=== PATIENT | male | born 1965 | race Caucasian/White ===

== ENCOUNTER 2019-05-30 12:51 | Observation (INO) | payer SELFPAY ==
[2019-05-30] MEDS ORDERED: Nitroglycerin 0.4 MG TAB (25 Tab Bottle) PO PRN (14:29)
[2019-05-30] MEDS ORDERED: Acetaminophen 325 MG TAB PO PRN (14:31)
[2019-05-30] MEDS ORDERED: Senokot S 8.6-50 MG TAB PO PRN (14:31)
[2019-05-30] MEDS ORDERED: Calcium Carbonate 500 MG ChewTAB PO PRN (14:31)
--- NOTE | 2019-05-30 15:14 | HP ---
PRIMARY CARE PHYSICIAN: None. CHIEF COMPLAINT: Chest discomfort. HISTORY OF PRESENT ILLNESS: The patient is a 54-year-old male with obesity and hypertension, presented to the emergency room with above complaints. The patient had an episode of chest discomfort last night that was substernal, 10/10, without any aggravating or relieving factor. He was short of breath without any diaphoresis, nausea, vomiting, lightheadedness, dizziness, or palpitations. He has been having exertional shortness of breath recently that is progressively getting worse. He has a history of hypertension, however, does not take any medications. He denies any fever, chills, heartburn, belching, or burping. He had a stress test more than 4 to 5 years ago for similar complaint. PAST MEDICAL HISTORY: 1. Hypertension. 2. Psoriasis. PAST SURGICAL HISTORY: Reviewed with the patient and none. ALLERGIES: THE PATIENT IS ALLERGIC TO CYMBALTA. CURRENT HOME MEDICATIONS: Enbrel once a week for psoriasis. SOCIAL HISTORY: The patient has history of methamphetamine abuse. Last use was two weeks ago. He chews tobacco. He currently is at [facility] for rehab. He denies any alcohol use. FAMILY HISTORY: Mother with lymphoma. REVIEW OF SYSTEMS: All other review of systems was reviewed and were found negative. PHYSICAL EXAMINATION: VITAL SIGNS: Temperature 98.3, respiration of 20, pulse rate of 79, blood pressure of 138/116 on ER arrival. His blood pressure after nitroglycerin was 111/78. GENERAL: A 54-year-old male in no apparent distress. Chest discomfort improved. HEENT: Head, atraumatic and normocephalic. Sclerae anicteric. Moist mucous membranes. No oral lesion. NECK: Supple. No JVD appreciated. No carotid bruit. LUNGS: Clear to auscultation bilaterally. No wheezing, rales, rhonchi. HEART: S1 and S2 present. Regular rate and rhythm. No rubs or gallops appreciated. No significant murmurs. ABDOMEN: Soft, nontender. Bowel sounds present. EXTREMITIES: No edema or calf tenderness. NEUROLOGY: Grossly nonfocal. Moves all 4 extremities. PSYCHIATRY: Alert, awake, and oriented x3. SKIN: Warm and dry. LYMPH NODES: No palpable lymph nodes in the neck. LABORATORY FINDINGS: Troponin x1 was negative. WBC 8.9, hemoglobin 15.9, hematocrit 46.4, platelet 184. D-dimer was negative. AST of 63, ALT of 165, alkaline phosphatase 94. Urine drug screen was negative. Urinalysis was negative. Chest x-ray by my review was negative for infiltrate or edema. EKG by my review showed sinus rhythm with nonspecific ST-T wave changes. Right bundle-branch block. MEDICATION: Given at [facility] emergency room; 1. Lovenox 1 mg/kg. 2. Tylenol. 3. Sublingual nitroglycerin x3. 4. Aspirin 324 mg. IMPRESSION: 1. Chest discomfort, resolved after three sublingual nitroglycerin. 2. Obesity BMI 30.7 3. Hypertension with hypertensive urgency on admission. 4. Abnormal LFTs of unclear etiology. 5. Tobacco dependence. 6. History of methamphetamine abuse, currently in rehab. 7. Suspected obstructive sleep apnea. PLAN: The patient will be monitored in the telemetry unit as observation. Serial troponins will be obtained. We will keep him n.p.o. for possible stress test if his troponins are negative. He already received 1 dose of Lovenox. He denies any chest discomfort at this time. We will check fasting lipid profile in a.m. We will consider cardiology consultation if his troponins are abnormal. Plan was discussed with the patient in detail. He stated understanding. Job ID: [id number] MTDD
[2019-05-30 16:26] VITALS: BMI 30.7
[2019-05-30] MEDS ORDERED: Atorvastatin Calcium 20 MG TAB PO SCH (21:00)
[2019-05-30 21:04] LABS: Troponin I Less than 0.010 ng/mL (< 0.028)
[2019-05-31 04:41] LABS: Hemoglobin A1c 6.2 % (4.0-6.0)
[2019-05-31 04:59] LABS: Cardiac Risk 4.8 (Less than 4.5)
[2019-05-31] MEDS ORDERED: Aspirin 325 mg Enteric Coated Tablet PO SCH (09:00)
[2019-05-31 15:49] VITALS: BP 130/76; TEMP 98
--- NOTE | 2019-05-31 15:52 | NM ---
Nuclear medicine Cardiac myocardial perfusion SPECT Ejection fraction study Wall motion cine: DATE:05/31/2019 7:00 AM INDICATION: Chest pain TECHNIQUE: Number of days:2 Rest Study: Technetium 99m-sestamibi (Cardiolite) dose:10.50 mCi Stress study: Technetium 99m-sestamibi (Cardiolite) dose:29.10 mCi FINDINGS: Cardiac (myocardial perfusion) SPECT There are no reversible myocardial perfusion defects. Ejection fraction study Left ventricular EF = 56% Wall motion cine There is some dyskinesia involving the inferior wall and apex on the cine images. There was normal wa ll thickening. IMPRESSION: 1. No specific scintigraphic evidence to suggest presence of reversible myocardial ischemia. 2. Some abnormal dyskinesia involving the inferior wall and apex of the lateral ventricle. Recommend consideration for echocardiography. 3. Estimated LVEF of 56%
--- NOTE | 2019-05-31 19:18 | DIS ---
DATE OF ADMISSION: 05/30/2019 DATE OF DISCHARGE: 05/31/2019 DISCHARGE DISPOSITION: Home. FOLLOWUP: Follow up with [facility]. ALLERGIES: THE PATIENT IS ALLERGIC TO CYMBALTA. DISCHARGE MEDICATIONS: Enbrel 50 mg every 7 days. INPATIENT CONSULTANTS: None. The patient was seen and examined on the day of discharge. Denies any new complaints. No chest pain, shortness of breath, or palpitations. SIGNIFICANT LABS: D-dimer was negative. Hemoglobin A1c 6.2. Fasting lipid showed triglyceride 174, cholesterol 158, LDL 90, HDL of 33. BRIEF HOSPITAL COURSE: The patient is a 54-year-old male with obesity and hypertension, presented to the emergency room with chest discomfort. Please refer to the history and physical for further details. The patient was admitted to the hospital with a diagnosis of chest discomfort, rule out acute coronary syndrome. His serial troponins were negative. He underwent exercise Cardiolite stress test that was negative for reversible ischemia. It showed some abnormal dyskinesia involving the inferior wall and the apex of the lateral ventricle. His ejection fraction was 56%. For this reason, he underwent an echocardiogram that showed normal left ventricular ejection fraction of 55% to 60% with mild mitral regurgitation, mild tricuspid regurgitation. He appears stable for discharge. He is chest pain free. FINAL DIAGNOSES: 1. Chest discomfort. Acute coronary syndrome ruled out. 2. No reversible ischemia on the stress test. 3. Obesity with a BMI 30.7. 4. History of methamphetamine abuse, currently in rehab. 5. Suspected obstructive sleep apnea. Sleep study as an outpatient was recommended. 6. Tobacco dependence. The patient was counseled. 7. Abnormal LFTs of unclear etiology. AST was 63, ALT of 165 with normal total bilirubin and alkaline phosphatase. Repeat LFTs as an outpatient were recommended. Primary care physician advised to follow. 8. Chronic kidney disease, stage 2. 9. Dyslipidemia. 10. Impaired glucose tolerance. PLAN: Plan was discussed with the patient in detail. He stated understanding. The patient was educated on dietary modification by dietitian as well. Job ID: [id number]
--- NOTE | 2019-06-03 16:21 | EKG ---
Test Reason : Blood Pressure : / mmHG Vent. Rate : 074 BPM Atrial Rate : 074 BPM P-R Int : 140 ms QRS Dur : 132 ms QT Int : 406 ms P-R-T Axes : 022 -27 002 degrees QTc Int : 450 ms Normal sinus rhythm Right bundle branch block Minimal voltage criteria for LVH, may be normal variant Abnormal ECG Confirmed by FLORENCIO KWONG, BEE ([id number]), electronic news gathering editor QUANG HERNANDEZ ([id number]) on 06/03/2019 4:21:09 PM Referred By: Confirmed By:BEE MATIAS MD
== END 2019-05-31 18:52 | disposition home or self-care (01) ==
LOC: ERS 12:51 → 2SW 15:59
PROVIDERS: ADMIT Internal Medicine; ATTEND Internal Medicine
DX: R07.2 Precordial pain (principal); E66.9 Obesity, unspecified; I16.0 Hypertensive urgency; I12.9 Hypertensive chronic kidney disease with stage 1 through stage 4 chronic kidney disease, or unspecified chronic kidney disease; N18.2 Chronic kidney disease, stage 2 (mild); R94.5 Abnormal results of liver function studies; F17.220 Nicotine dependence, chewing tobacco, uncomplicated; F15.10 Other stimulant abuse, uncomplicated; E78.5 Hyperlipidemia, unspecified; R73.02 Impaired glucose tolerance (oral); F41.9 Anxiety disorder, unspecified; F32.9 Major depressive disorder, single episode, unspecified; I45.10 Unspecified right bundle-branch block; Z68.30 Body mass index [BMI] 30.0-30.9, adult; Z88.8 Allergy status to other drugs, medicaments and biological substances
CPT/HCPCS: 36415; 78452; 80061; 83036; 93005; 93017; 93306; 94760; A9500; G0378

== ENCOUNTER 2019-06-04 19:48 | Emergency (ER) | payer SELFPAY ==
[2019-06-04 20:25] LABS: Bilirubin Negative (Negative); Blood, Urine Negative (Negative); Clarity Clear (Clear); Glucose, Urine (Dipstick) Normal (Negative); Leukocyte Negative Leu/uL (Negative); Nitrite Negative (Negative); Protein, Urine (Dipstick) Negative (Neg-Trace); Urobilinogen Normal mg/dL (Less than 2)
--- NOTE | 2019-06-04 21:00 | ULT ---
Scrotal ultrasound: 06/04/2019 COMPARISON: None HISTORY: Right testicular pain TECHNIQUE: Multiplanar grayscale sonographic imaging of the scrotal contents obtained with Doppler in terrogation of the testicles including color flow and spectral analysis FINDINGS: Right testicle measures 4.1 x 2.0 x 2.8 cm. Echogenicity of the right testicle is heterogen eous, especially along the inferior aspect of the right testicle. There is a questionable ill-defined lobulated hypoechoic area within the right testicle measuring 1.5 x 1.5 cm. Right epididy mis measures approximately 1.1 cm and contains a 4 x 2 mm cyst. Left testicle measures 3.3 x 1.7 x 2.4 cm and demonstrates normal blood flow without evidence for mas s. There is a prominent cyst in the left epididymal head measuring 1.9 x 1.4 cm. There is a left-sided varicocele. IMPRESSION: Heterogeneity of the right testicular echotexture, particularly inferiorly. In the proper clinical setting, this could signify orchitis. An underlying testicular mass lesion cannot be excluded and thus follow-up urology consultation and short-term follow-up ultrasound following treatm ent is advised. Left-sided varicocele Left epididymal cyst.
[2019-06-04] MEDS ORDERED: Ketorolac Tromethamine 30 MG/ML VIAL ONE (21:37)
== END 2019-06-04 21:54 ==
LOC: ERS 19:48
DX: N45.2 Orchitis (principal); F32.9 Major depressive disorder, single episode, unspecified; F41.9 Anxiety disorder, unspecified; I10 Essential (primary) hypertension; L40.9 Psoriasis, unspecified; F17.220 Nicotine dependence, chewing tobacco, uncomplicated
CPT/HCPCS: 76870; 93976; 96374; J1885

== ENCOUNTER 2019-07-06 13:22 | Outpatient (CLI) | payer OTHER ==
--- NOTE | 2019-07-06 19:09 | ULT ---
SCROTAL ULTRASOUND WITH POSADA SCALE AND DOPPLER COLOR FLOW IMAGIN07/06/19 INDICATION: Testicular pain. COMPARISON: 06/04/19 FINDINGS: No evidence of intratesticular mass bilaterally. Vascular flow is documented at each testis without e vidence of torsion. Epididymal cyst formation is seen on the left. The epididymal cyst is moderate in size and there are foci of increased echogenicity which may relate to associated/adjacent small calc ifications. Incidental note of prominent vasculature of the left inguinal region. This does not significantly inc rease by Valsalva maneuver. IMPRESSION: 1. No evidence of testicular torsion or mass. 2. Increased vascularity to the left inguinal region indicating varicocele. 3. Moderate sized left epididymal cyst with associated/adjacent punctate calcification. 4. The previously documented asymmetric heterogeneity of the inferior aspect of the right testis is less conspicuous on the current exam. Recommend clinical correlation, as this could relate to int erval resolution of orchitis in the appropriate context. POS: Emiliano
== END 2019-07-06 13:23 | disposition home or self-care (01) ==
LOC: ULT 13:22
PROVIDERS: ATTEND Urology
DX: N50.811 Right testicular pain (principal); N50.3 Cyst of epididymis; R93.811 Abnormal radiologic findings on diagnostic imaging of right testicle
CPT/HCPCS: 76870; 93976